=== PATIENT | male | born 1940 ===

== ENCOUNTER → 2016-08-26 | Outpatient (CLI) | payer MEDICARE, BC ==
[~2016-08-26] MED LIST: ADVIL200 MG PO; ALBUTEROL2.5 MG/0.5 INH; ASPIRIN (CHILDR81 MG PO; ASPIRIN LO-DOSE81 MG PO; ASPIRIN325 MG PO; ATIVAN 1 MG1 MG PO; ATIVAN1 MG PO; BUMETANIDE2 MG PO; BUMEX1 MG PO; CEFTRIAXONE IV; CLONAZEPAM1 MG PO; COENZYME Q10100 MG PO; COLACE100 MG PO; CORDARONE,PACE200 MG PO; COREG 3.1253.125 MG PO; COUMADIN ** IA5 MG PO; COUMADIN **IA7.5 MG PO; COUMADIN 4MG **4 MG PO; COZAAR50 MG PO; CPAP INH; DESYREL100 MG PO; DULCOLAX5 MG PO; ELAVIL25 MG PO; FISH OIL1000 MG PO; FLOMAX0.4 MG PO; FLONASE 50 MCG/16 GM NOSE; FLORASTOR250 MG PO; GLUCOSAMINE1000 MG PO; K-TAB 10MEQ10 MEQ PO; K-TAB ER20 MEQ PO; LIPITOR20 M1 PO; LIPITOR40 MG PO; LOPRESSOR100 M1 PO; LOPRESSOR12.5 MG/0. PO; LOPRESSOR25 MG PO; MAG-OX-400(241400 MG PO; MILK OF MA400 MG/5 M PO; MIRTAZAPINE7.5 MG PO; NEURONTIN300 MG PO; NORCO 5-325 MG1 TAB PO; NORVASC10 MG PO; PEPCID20 MG PO; PRINIVIL (ZESTR20 MG PO; PRINIVIL (ZESTRI5 MG PO; PROTONIX40 MG PO; PROVENTIL OR V6.7 GM INH; REMERON15 MG PO; ROCEPHIN2 G1 IV; SEROQUEL50 MG PO; TUMERIC PO; TYLENOL325 MG PO; VITAMIN D1000 UNIT PO; ZESTRIL2.5 MG PO; ZOLOFT50 MG PO; ZYPREXA ORALLY10 MG PO; ZYPREXA ZYDI5 MG PO/SUBLING; ZYPREXA2.5 MG PO; [UNRECOGNIZED DRUG - OTHER] IV
[2016-08-26 15:08] LABS: ALBUMIN 3.8 gm/dL (3.5-5.0); ANION GAP 15.3 (10.0-19.0); CALCIUM 8.6 mg/dL (8.5-10.5); CREATININE 1.8 mg/dL (0.6-1.3); POTASSIUM 4.3 mMol/L (3.7-5.1); TOTAL BILIRUBIN 0.6 mg/dL (0.0-1.5)
== END | disposition disaster alternative care site (69) ==
LOC: LNHI 14:50
PROVIDERS: Internal Medicine Interventional Cardiology
DX: I50.9 Heart failure, unspecified (principal); R06.02 Shortness of breath

== ENCOUNTER → 2016-12-06 | Outpatient (CLI) | payer MEDICARE, BC ==
[2016-12-06 09:18] LABS: ANION GAP 9.5 (10.0-19.0); CALCIUM 8.4 mg/dL (8.5-10.5); CREATININE 1.5 mg/dL (0.6-1.3); POTASSIUM 4.5 mMol/L (3.7-5.1)
== END ==
LOC: LNHI 08:58
PROVIDERS: Internal Medicine Interventional Cardiology
DX: I11.0 Hypertensive heart disease with heart failure (principal); I50.32 Chronic diastolic (congestive) heart failure; I25.10 Atherosclerotic heart disease of native coronary artery without angina pectoris; I35.0 Nonrheumatic aortic (valve) stenosis; Z95.2 Presence of prosthetic heart valve